=== PATIENT | female | born 1980 | race Caucasian/White ===

== ENCOUNTER 2018-08-30 08:32 | Emergency (ER) | payer BC, OTHER ==
[2018-08-30 08:46] VITALS: BP 116/66
[2018-08-30] MEDS ORDERED: IBUPROFEN 800 MG TABLET PO STA (08:48)
--- NOTE | 2018-08-30 09:10 | ED Physician Documentation ---
PD HPI URI - Stated complaint Stated Complaint: COUGH/CONGESTION - Chief complaint Chief Complaint: General - History obtained from History obtained from: Patient - History of Present Illness Timing - onset: How many days ago (2) Timing duration: Days (2) Timing details: Still present Associated symptoms: Fever, Chills, Productive cough Contributing factors: Sick contact (Daughter with similar symptoms.) - Additional information Additional information: The patient is a 37-year-old female who presents with cough of 2 weeks duration, and fever and chills that have occurred during the past 2 days. She also reports headache and myalgias. She denies shortness of breath, chest pain, sore throat, vomiting or diarrhea. Her daughter has been sick with similar symptoms. She has not had flu vaccination this year. Review of Systems Constitutional: reports: Fever, Chills, Myalgias Eyes: denies: Irritation Ears: denies: Ear pain Nose: reports: Congestion Throat: denies: Sore throat Cardiac: denies: Chest pain / pressure Respiratory: reports: Cough. denies: Dyspnea GI: denies: Abdominal Pain, Nausea, Vomiting : denies: Dysuria Skin: denies: Rash Musculoskeletal: denies: Back pain, Extremity swelling Neurologic: reports: Headache PD PAST MEDICAL HISTORY - Past Medical History Past Medical History: Yes - Past Surgical History Past Surgical History: Yes General: Appendectomy /[employer]: section - Present Medications Home Medications: Ambulatory Orders Medication Instructions Recorded Confirmed Oseltamivir [Tamiflu] 75 mg PO BID #10 capsule 08/30/18 - Allergies Allergies/Adverse Reactions: Allergies Allergy/AdvReac Type Severity Reaction Status Date / Time No Known Drug Allergies Allergy Verified 08/30/18 08:46 - Social History Does the pt smoke?: No Smoking Status: Never smoker PD ED PE NORMAL - Vitals Vital signs reviewed: Yes (Normal) - General General: Alert and oriented X 3, Well developed/nourished - HEENT HEENT: Atraumatic, EOMI, Ears normal, Pharynx benign - Neck Neck: Supple, no meningeal sign, No adenopathy - Cardiac Cardiac: RRR, No murmur - Respiratory Respiratory: Clear bilaterally - Abdomen Abdomen: Soft, Non tender - Back Back: No CVA TTP - Derm Derm: No rash - Extremities Extremities: No edema, No calf tenderness / cord - Neuro Neuro: Alert and oriented X 3, No motor deficit, Normal speech Results - Vitals Vitals: Vital Signs - 24 hr 08/30/18 08:42 Temperature 36.8 C Heart Rate 68 Respiratory 16 Rate Blood Pressure 116/66 O2 Saturation 98 Oxygen O2 Source Room air - Labs Labs: Laboratory Tests 08/30/18 08:50 Influenza A (Rapid) POSITIVE H Influenza B (Rapid) Negative PD MEDICAL DECISION MAKING - ED course Complexity details: reviewed results, re-evaluated patient, considered differential, d/w patient, d/w family ED course: Patient's presentation is most consistent with influenza, confirmed with nasal swab positive for influenza A. Her presentation does not suggest pneumonia. Treatment in the emergency department included administration of Tamiflu, 75 mg orally, and ibuprofen, 800 mg orally. She is being discharged with prescription for Tamiflu. I discussed with her and her the expected course of illness, outpatient treatment and follow-up, as well as potentially worrisome signs or symptoms that should prompt reevaluation in the emergency department. Departure - Departure Disposition: 01 Home, Self Care Clinical Impression: Influenza A Condition: Stable Instructions: ED Flu Follow-Up: Maddie Fox MD [Physician No Access] - Prescriptions: Oseltamivir [Tamiflu] 75 mg PO BID #10 capsule Comments: Drink plenty of fluids. Take Tamiflu twice daily as prescribed. You can use ibuprofen, up to 800 mg 3 times daily to help with fever or discomfort. Follow-up with your primary physician within 2 weeks. Call to schedule ap pointment. Return to the emergency department if you develop increasing headache, increasing difficulty breathing, or otherwise worsening symptoms.
[2018-08-30] MEDS ORDERED: OSELTAMIVIR 75 MG CAPSULE PO STA (09:30)
== END 2018-08-30 09:46 | disposition home or self-care (01) ==
LOC: ED 08:32
DX: J10.89 Influenza due to other identified influenza virus with other manifestations (principal)
CPT/HCPCS: 87275; 87276; 99283; 99284; A9270